=== PATIENT | female | born 1940 | race Caucasian/White ===

== ENCOUNTER 2017-09-24 18:42 | Emergency (ER) | payer MEDICARE, OTHER ==
[~2017-09-24] VITALS: Ht 152.4 cm; Wt 47.0 kg
[2017-09-24] MEDS ORDERED: CLON-528 PO (19:52)
[2017-09-24 20:34] VITALS: BP 155/83
== END 2017-09-24 20:38 | disposition home or self-care (01) ==
LOC: ER 18:43
DX: G47.00 Insomnia, unspecified (principal); F41.9 Anxiety disorder, unspecified; Z76.0 Encounter for issue of repeat prescription; Z95.0 Presence of cardiac pacemaker; Z79.899 Other long term (current) drug therapy; Z90.89 Acquired absence of other organs; Z60.2 Problems related to living alone
CPT/HCPCS: 99283